=== PATIENT | male | born 1940 | race Two or more races ===

== ENCOUNTER 2017-08-16 12:48 | Inpatient (IN) | payer MEDICARE, BC ==
[~2017-08-16] VITALS: Ht 182.9 cm; Wt 81.6 kg
--- NOTE | 2017-08-16 12:57 | NUR ---
BB CUT OFF SAW OPERATOR METAL OF [facility] FOR PSYCH EVAL; RESTLESS, AGITATED, STRIKING STAFF PER STAFF. A/OX1. NAD VSS RR EVEN AND UNLABORED. PT IS CALM AT THIS TIME, PER STAFF PT GOT ATIVAN CANOPY STRINGER. WILL CONT TO MONITOR
[2017-08-16 13:24] LABS: APPEARANCE,URINE CLEAR (CLEAR); BILIRUBIN,URINE NEGATIVE (NEGATIVE); BLOOD, URINE NEGATIVE Ery/uL (NEGATIVE); COLOR,URINE YELLOW (YELLOW); KETONES,URINE NEGATIVE (NEGATIVE); LEUKOCYTE ESTERASE ,URINE NEGATIVE (NEGATIVE); NITRITE, URINE NEGATIVE (NEGATIVE); PH,URINE 7.5 (5.0-8.0); PROTEIN,URINE NEGATIVE (NEGATIVE); UGLUCOSE NEGATIVE (NEGATIVE); UROBILINOGEN,URINE 0.2 EU/dL (0.2)
[2017-08-16 13:29] LABS: BASOPHILS % (AUTO) 0.4 % (0.0-2.0); EOSINOPHILS % (AUTO) 2.4 % (0.0-6.0); HEMATOCRIT 37 % (39-51); HEMOGLOBIN 12.5 g/dL (13.5-17.5); LYMPHOCYTES # (AUTO) 0.9 /CMM (0.8-4.8); LYMPHOCYTES % (AUTO) 16.4 % (20.0-44.0); MEAN CORPUSCULAR HEMOGLOBIN 29 PG (26.0-33.0); MEAN CORPUSCULAR HGB CONC 34 g/dl (31.0-36.0); MEAN CORPUSCULAR VOLUME 84 fL (80-96); MONOCYTES # (AUTO) 0.3 /CMM (0.1-1.30); MONOCYTES % (AUTO) 5.7 % (2.0-12.0); NEUTROPHILS # (AUTO) 4.2 /CMM (1.8-8.9); NEUTROPHILS % (AUTO) 75.1 % (43.0-81.0); PLATELET COUNT (AUTO) 210 /CMM (150-450); RDW COEFFICIENT OF VARIATION 13.2 (11.5-15.0); RED BLOOD CELL COUNT(AUTO) 4.39 MIL/uL (4.5-6.0); WHITE BLOOD COUNT (AUTO) 5.5 K/uL (4.3-11.0)
[2017-08-16 13:40] LABS: ALANINE AMINOTRANSFERASE 20 U/L (12-78); ALBUMIN 3.3 g/dL (3.4-5.0); ALCOHOL, BLOOD < 3 mg/dL (0-0); ALKALINE PHOSPHATASE 69 U/L (46-116); ASPARTATE AMINOTRANSFERASE 20 U/L (15-37); BILIRUBIN,DIRECT 0.1 mg/dL (0.0-0.2); BILIRUBIN,TOTAL 0.4 mg/dL (0.2-1.0); CALCIUM, SERUM 8.3 mg/dL (8.5-10.1); CARBON DIOXIDE 27 mmol/L (21-32); CHLORIDE 103 mmol/L (98-107); CREATININE 1.1 mg/dL (0.6-1.3); GLUCOSE 142 mg/dL (74-106); POTASSIUM 3.8 mmol/L (3.5-5.1); SODIUM SERUM 136 mmol/L (136-145); TOTAL PROTEIN, SERUM 6.5 g/dL (6.4-8.2); UREA NITROGEN, BLOOD 16 mg/dL (7-18)
[2017-08-16 13:48] LABS: ACETAMINOPHEN 0 ug/ml (10-30); SALICYLATE 2.7 mg/dL (2.8-20.0)
[2017-08-16] MEDS ORDERED: ESCI20TA PO (14:10)
[2017-08-16] MEDS ORDERED: POTA10TA15 PO (14:10)
[2017-08-16] MEDS ORDERED: FLUD0.1T PO (14:10)
[2017-08-16] MEDS ORDERED: BENZ0.5T43 PO (14:10)
[2017-08-16] MEDS ORDERED: CARB-93 PO (14:10)
[2017-08-16] MEDS ORDERED: CALC500T3 PO (14:10)
[2017-08-16] MEDS ORDERED: ATOR20TA PO (14:10)
[2017-08-16] MEDS ORDERED: DULO60CA45 PO (14:10)
[2017-08-16] MEDS ORDERED: AMLO10TA2 PO (14:10)
[2017-08-16] MEDS ORDERED: HYDR-552 PO (14:10)
[2017-08-16] MEDS ORDERED: DONE10TA44 PO (14:10)
[2017-08-16] MEDS ORDERED: BUSP10TA35 PO ×3 (14:10)
[2017-08-16] MEDS ORDERED: QUET25TA PO (14:10)
[2017-08-16] MEDS ORDERED: LISI10TA5 PO (14:10)
[2017-08-16] MEDS ORDERED: ASPI-992 PO (14:10)
[2017-08-16] MEDS ORDERED: LORA1TAB PO (14:10)
[2017-08-16] MEDS ORDERED: DOCU100C36 PO (14:10)
[2017-08-16] MEDS ORDERED: QUET100T PO (14:10)
--- NOTE | 2017-08-16 14:13 | NUR ---
PAGED STEVIE FOR EVAL - ETA 60 MIN
[2017-08-16] MEDS ORDERED: LORAZEPAM INJ 2 MG/ML VIAL ONE (14:21)
[2017-08-16] MEDS ORDERED: LORAZEPAM INJ 2 MG/ML VIAL IV ONE (14:30)
[2017-08-16] MEDS ORDERED: OLANZAPINE 10 MG VIAL IM ONE ×2 (14:44→15:00)
--- NOTE | 2017-08-16 15:09 | NUR ---
STEVIE PET TEAM AT BEDSIDE FOR EVALUATION
[2017-08-16 16:00] VITALS: BP 145/86
--- NOTE | 2017-08-16 16:03 | NUR ---
REPORT GIVEN TO BRENNEN SPENCER FOR CONT OF CARE
[2017-08-16] MEDS ORDERED: MAGNESIUM HYDROXIDE 30 ML UDC PO PRN (17:00)
[2017-08-16] MEDS ORDERED: MAG HYDROX/AL HYDROX/SIMETH 30 ML UDC PO PRN (17:00)
--- NOTE | 2017-08-16 17:55 | NUR ---
RN NOTE: PATIENT ARRIVED ON THE UNIT AT 1630. PATIENT IS CONFUSED AND SLURRED SPEECH. PATIENT ARRIVED VIA GURNEY FROM ER. [facility] AND BROUGHT IN FOR STRIKING AT STAFF, RESTLESS, AND AGITATION. PATIENT SKIN ASSESSMENT IS COMPLETE AND IN CHART. BELONGINGS CHECKED. PATIENT UNABLE TO SIGN PAPERS. ACCORDING TO ER, MRSA DONE. PSYCH AND MANUAL TESTER MADE AWARE. PATIENT IS CONFUSED, BUT TRIED TO ORIENT TO POLICY AND PROCEDURES.
[2017-08-16] MEDS ORDERED: CARBIDOPA/LEVODOPA 25/100 MG 1 UDTAB PO ONE (19:00)
[2017-08-16 20:03] VITALS: BP 137/65
--- NOTE | 2017-08-16 20:30 | NUR ---
GPS-RN PATIENT IS AGITATED AND RESTLESS, YELLING REPETITIVELY, BANGING THE SIDE RAILS, NEEDS FREQUENT REDIRECTION. WILL CONTINUE TO MONITOR Q15MIN ROUNDS FOR SAFETY AND BEHAVIOR. PATIENT REMAINS ON 1:1 FOR SAFETY.
[2017-08-16] MEDS: LORAZEPAM 1 MG TABLET PO PRN (20:35)
--- NOTE | 2017-08-16 20:35 | NUR ---
GPS-RN PATIENT IS ANXIOUS AND RESTLESS. VSS. ADMINISTERED ATIVAN 1MG PO ORDERED. WILL CONTINUE TO MONITOR [id number] FOR SAFETY AND BEHAVIOR.
[2017-08-16] MEDS: DONEPEZIL 5 MG TABLET PO SCH (21:42)
[2017-08-16] MEDS: HYDROCODONE/APAP 5/325MG 1 EACH TABLET PO PRN (22:58)
[2017-08-17] MEDS: ZOLPIDEM TARTRATE 5 MG TABLET PO PRN ×2 (00:44→21:36)
[2017-08-17] MEDS: ACETAMINOPHEN 325 MG TABLET PO PRN ×2 (01:12→19:38)
--- NOTE | 2017-08-17 01:27 | NUR ---
GPS-RN PATIENT NOTED TO BE NON-VERBAL INDICATOR OF PAIN/DISCOMFORT PRESENT, MANIFESTED WITH MOANING AND FACIAL GRIMACING. ADMINISTERED NORCO 5/325MG PO ORDERED. WILL CONTINUE TO MONITOR.
--- NOTE | 2017-08-17 06:04 | NUR ---
GPS-RN SPOKE TO MEAGAN BALDERAS NOTIFIED OF PATIENT'S ADMISSION.
[2017-08-17 08:00] VITALS: BP 145/89
[2017-08-17 08:10] LABS: ALANINE AMINOTRANSFERASE 20 U/L (12-78); ALBUMIN 3.5 g/dL (3.4-5.0); ALKALINE PHOSPHATASE 70 U/L (46-116); ASPARTATE AMINOTRANSFERASE 13 U/L (15-37); BILIRUBIN,TOTAL 0.5 mg/dL (0.2-1.0); CALCIUM, SERUM 8.6 mg/dL (8.5-10.1); CARBON DIOXIDE 29 mmol/L (21-32); CHLORIDE 105 mmol/L (98-107); GLUCOSE 77 mg/dL (74-106); POTASSIUM 3.8 mmol/L (3.5-5.1); SODIUM SERUM 140 mmol/L (136-145); TOTAL PROTEIN, SERUM 6.8 g/dL (6.4-8.2); UREA NITROGEN, BLOOD 16 mg/dL (7-18)
[2017-08-17] MEDS: BENZTROPINE MESYLATE (1 MG) 1 MG TABLET PO SCH ×2 (08:50→16:00)
[2017-08-17] MEDS: CARBIDOPA/LEVODOPA 25/100 MG 1 UDTAB PO SCH ×3 (08:52→16:00)
[2017-08-17] MEDS: LORAZEPAM 1 MG TABLET PO PRN ×3 (08:52→18:03)
[2017-08-17] MEDS: ASPIRIN 325 MG TABLET PO SCH (08:52)
[2017-08-17] MEDS: DULOXETINE HCL 30 MG CAPSULE.DR PO SCH (08:52)
[2017-08-17] MEDS: HYDROCODONE/APAP 5/325MG 1 EACH TABLET PO PRN ×2 (08:52→15:32)
[2017-08-17] MEDS: POTASSIUM CHLORIDE 10 MEQ TABLET.SA PO SCH (08:52)
[2017-08-17] MEDS: DOCUSATE SODIUM 100 MG CAPSULE PO SCH ×2 (08:52→16:00)
[2017-08-17] MEDS: CALCIUM CARBONATE (1250) 500 MG TABLET PO SCH (08:52)
--- NOTE | 2017-08-17 08:52 | NUR ---
GPS/RN PATIENT NOTED WITH NON-VERBAL INDICATOR OF PAIN/DISCOMFORT PRESENT, MANIFESTED BY MOANING, FACIAL GRIMACING AND YELLING. ADMINISTERED NORCO 5/325MG PO ORDERED. WILL CONTINUE TO MONITOR.
[2017-08-17] MEDS: ESCITALOPRAM OXALATE (10 MG) 10 MG TABLET PO SCH (08:53)
[2017-08-17] MEDS: LISINOPRIL (10MG) 10 MG TABLET PO SCH (08:53)
[2017-08-17] MEDS: AMLODIPINE BESYLATE 10 MG TABLET PO SCH (08:53)
[2017-08-17] MEDS ORDERED: AMLODIPINE BESYLATE 10 MG TABLET PO SCH (09:00)
[2017-08-17] MEDS ORDERED: LISINOPRIL (10MG) 10 MG TABLET PO SCH (09:00)
[2017-08-17] MEDS: FLUDROCORTISONE 0.1 MG TABLET PO SCH ×2 (09:00→10:24)
[2017-08-17] MEDS ORDERED: OLANZAPINE 2.5 MG TABLET PO SCH (09:00)
[2017-08-17 09:36] LABS: CHOLESTEROL 136 mg/dL (<200); HDL CHOLESTEROL 61 mg/dL (40-60); LDL 63 mg/dL (0-99); TRIGLYCERIDES 67 mg/dL (30-150)
--- NOTE | 2017-08-17 10:10 | NUR ---
GPS/RN PATIENT IS EXTREMELY ANXIOUS, AGITATED AND RESTLESS. ADMINISTERED ATIVAN 1 MG, WILL CONTINUE TO MONITOR.
--- NOTE | 2017-08-17 15:32 | NUR ---
GPS/RN PATIENT NOTED IN PAIN/DISCOMFORT, MANIFESTED BY MOANING AND FACIAL GRIMACING, UNABLE TO SCALE, ADMINISTERED NORCO 5/325MG PO ORDERED. WILL CONTINUE TO MONITOR.
[2017-08-17 16:59] VITALS: BP 115/63
--- NOTE | 2017-08-17 18:04 | NUR ---
GPS/RN PATIENT IS EXTREMELY ANXIOUS, AGITATED AND RESTLESS, YELLING, BANGING ON TRAY, ADMINISTERED ATIVAN 1 MG, WILL CONTINUE TO MONITOR.
[2017-08-17 20:32] VITALS: BP 146/120
[2017-08-17] MEDS: DONEPEZIL 5 MG TABLET PO SCH (21:00)
[2017-08-17] MEDS: ATORVASTATIN 10 MG TABLET PO SCH (21:06)
--- NOTE | 2017-08-17 21:36 | NUR ---
GPS-RN PATIENT UNABLE TO STAY ASLEEP. VSS. ADMINISTERED AMBIEN 5MG PO ORDERED. WILL CONTINUE TO MONITOR HOURS OF SLEEP.
[2017-08-18 08:00] VITALS: BP 147/73
--- NOTE | 2017-08-18 08:00 | NUR ---
GPS-RN AM NOTES PATIENT COMFORTABLY SLEEPING BUT AROUSABLE.REFUSED BREAKFAST.WILL CONTINUE TO MONITOR Q15MIN ROUNDS FOR SAFETY AND BEHAVIOR. PATIENT REMAINS ON 1:1 SITTER FOR SAFETY.
[2017-08-18] MEDS: ASPIRIN 325 MG TABLET PO SCH (08:56)
[2017-08-18] MEDS: BENZTROPINE MESYLATE (1 MG) 1 MG TABLET PO SCH ×2 (08:56→16:31)
[2017-08-18] MEDS: ESCITALOPRAM OXALATE (10 MG) 10 MG TABLET PO SCH (08:56)
[2017-08-18] MEDS: CALCIUM CARBONATE (1250) 500 MG TABLET PO SCH (08:57)
[2017-08-18] MEDS: CARBIDOPA/LEVODOPA 25/100 MG 1 UDTAB PO SCH ×3 (08:57→16:31)
[2017-08-18] MEDS: FLUDROCORTISONE 0.1 MG TABLET PO SCH (08:57)
[2017-08-18] MEDS: OLANZAPINE 2.5 MG TABLET PO SCH (08:57)
[2017-08-18] MEDS: AMLODIPINE BESYLATE 10 MG TABLET PO SCH (08:57)
[2017-08-18] MEDS: POTASSIUM CHLORIDE 10 MEQ TABLET.SA PO SCH (08:57)
[2017-08-18] MEDS: DOCUSATE SODIUM 100 MG CAPSULE PO SCH ×2 (08:57→16:31)
[2017-08-18] MEDS: LISINOPRIL (10MG) 10 MG TABLET PO SCH (08:58)
[2017-08-18] MEDS: DULOXETINE HCL 30 MG CAPSULE.DR PO SCH (08:58)
--- NOTE | 2017-08-18 12:11 | NUR ---
WOUND CARE CONSULT: PT SEEN FOR DRY ABRASIONS TO ARMS AND RT LOWER LEG, PRESENT ON ADMISSION. NO DRAINAGE NOTED. WILL SEE PRN.
[2017-08-18] MEDS: clonazePAM 0.5 MG TABLET PO SCH (12:35)
--- NOTE | 2017-08-18 13:06 | NUR ---
INITIAL DISCHARGE PLAN: Per pts , pt will return to [facility] [address] [place] [id number] . MANUEL contacted Deb [facility] orthodontist small business owner [phone] who confirmed pt was able to return to facility once stabilized. Deb also stated she needed to complete and assessment before pt could return to facility. MANUEL will help form a safe and proper discharge in collaboration with .
[2017-08-18 16:00] VITALS: BP 115/66
--- NOTE | 2017-08-18 17:34 | NUR ---
PT RESTING IN BED BEING FED BY HIS SITTER OF HIS DINNER.PT HAS NO S/S OF AGITATION AND RESTLESSNESS.PT COMPLIANT WITH MEDS.NO S/S OF PAIN OR DISTRESS.WILL CONTINUE TO MONITOR.
[2017-08-18 20:00] VITALS: BP 113/86
[2017-08-18] MEDS: DONEPEZIL 5 MG TABLET PO SCH (21:51)
[2017-08-18] MEDS: ATORVASTATIN 10 MG TABLET PO SCH (21:51)
[2017-08-19] MEDS: ZOLPIDEM TARTRATE 5 MG TABLET PO PRN (01:08)
[2017-08-19 08:24] VITALS: BP 133/73
[2017-08-19] MEDS: POTASSIUM CHLORIDE 10 MEQ TABLET.SA PO SCH (08:48)
[2017-08-19] MEDS: ASPIRIN 325 MG TABLET PO SCH (08:48)
[2017-08-19] MEDS: DULOXETINE HCL 30 MG CAPSULE.DR PO SCH (08:48)
[2017-08-19] MEDS: BENZTROPINE MESYLATE (1 MG) 1 MG TABLET PO SCH ×2 (08:48→16:40)
[2017-08-19] MEDS: CALCIUM CARBONATE (1250) 500 MG TABLET PO SCH (08:49)
[2017-08-19] MEDS: LISINOPRIL (10MG) 10 MG TABLET PO SCH (08:49)
[2017-08-19] MEDS: ESCITALOPRAM OXALATE (10 MG) 10 MG TABLET PO SCH (08:49)
[2017-08-19] MEDS: AMLODIPINE BESYLATE 10 MG TABLET PO SCH (08:49)
[2017-08-19] MEDS: DOCUSATE SODIUM 100 MG CAPSULE PO SCH ×2 (08:49→16:57)
[2017-08-19] MEDS: FLUDROCORTISONE 0.1 MG TABLET PO SCH (08:49)
[2017-08-19] MEDS: OLANZAPINE 2.5 MG TABLET PO SCH (08:49)
[2017-08-19] MEDS: CARBIDOPA/LEVODOPA 25/100 MG 1 UDTAB PO SCH ×3 (08:49→16:40)
[2017-08-19] MEDS: clonazePAM 0.5 MG TABLET PO SCH (12:11)
[2017-08-19 16:00] VITALS: BP 154/82
[2017-08-19 20:00] VITALS: BP 139/75
[2017-08-19] MEDS: DONEPEZIL 5 MG TABLET PO SCH (22:01)
[2017-08-19] MEDS: ZOLPIDEM TARTRATE 10 MG TABLET PO PRN (22:01)
[2017-08-19] MEDS: ATORVASTATIN 10 MG TABLET PO SCH (22:01)
--- NOTE | 2017-08-19 22:02 | NUR ---
AMBIEN 10 MG TAB 1 PO GIVEN FOR SLEEP.
[2017-08-20 08:00] VITALS: BP 144/73
[2017-08-20] MEDS: ESCITALOPRAM OXALATE (10 MG) 10 MG TABLET PO SCH (08:51)
[2017-08-20] MEDS: DOCUSATE SODIUM 100 MG CAPSULE PO SCH ×3 (08:51→17:01)
[2017-08-20] MEDS: FLUDROCORTISONE 0.1 MG TABLET PO SCH (08:51)
[2017-08-20] MEDS: AMLODIPINE BESYLATE 10 MG TABLET PO SCH (08:52)
[2017-08-20] MEDS: CARBIDOPA/LEVODOPA 25/100 MG 1 UDTAB PO SCH ×3 (08:52→17:01)
[2017-08-20] MEDS: POTASSIUM CHLORIDE 10 MEQ TABLET.SA PO SCH (08:52)
[2017-08-20] MEDS: LISINOPRIL (10MG) 10 MG TABLET PO SCH (08:52)
[2017-08-20] MEDS: CALCIUM CARBONATE (1250) 500 MG TABLET PO SCH (08:52)
[2017-08-20] MEDS: BENZTROPINE MESYLATE (1 MG) 1 MG TABLET PO SCH ×2 (08:52→17:01)
[2017-08-20] MEDS: OLANZAPINE 2.5 MG TABLET PO SCH (08:52)
[2017-08-20] MEDS: ASPIRIN 325 MG TABLET PO SCH (08:55)
[2017-08-20] MEDS: clonazePAM 0.5 MG TABLET PO SCH (13:30)
[2017-08-20 16:00] VITALS: BP 115/63
[2017-08-20] MEDS: LORAZEPAM 1 MG TABLET PO PRN (17:56)
--- NOTE | 2017-08-20 18:38 | NUR ---
AM RN NOTE Pt resting in his bed, no episode of hematuria noted during this shift. 1:1 sitter at bedside.
--- NOTE | 2017-08-20 19:05 | NUR ---
AM RN NOTE Noted cancellation for UA order, called lab spoke with Koby and per him the order was cancelled because UA sample was received but he will call back after he confirms with tech. Endorsed to Next shift RN.
[2017-08-20 20:00] VITALS: BP 99/58
--- NOTE | 2017-08-20 20:03 | NUR ---
ORDER FOR U/A WITH C/S CANCELLED, LAB WAS NOTIFIED.
--- NOTE | 2017-08-20 20:04 | NUR ---
REPOERT GIVEN TO NURSE ESTEVAN FOR CONTINUITY OF CARE.
[2017-08-20] MEDS: DONEPEZIL 5 MG TABLET PO SCH (21:12)
[2017-08-20] MEDS: ATORVASTATIN 10 MG TABLET PO SCH (21:12)
[2017-08-20] MEDS: ZOLPIDEM TARTRATE 10 MG TABLET PO PRN (21:12)
--- NOTE | 2017-08-20 21:15 | NUR ---
AMBIEN 10 MG TAB PO GIVEN FOR SLEEP. MEDS WAS CRUSHED TO PREVENT POSSIBLE ASPIRATION
[2017-08-21 08:00] VITALS: BP 100/66
[2017-08-21] MEDS: CARBIDOPA/LEVODOPA 25/100 MG 1 UDTAB PO SCH ×3 (09:06→17:33)
[2017-08-21] MEDS: CALCIUM CARBONATE (1250) 500 MG TABLET PO SCH (09:06)
[2017-08-21] MEDS: BENZTROPINE MESYLATE (1 MG) 1 MG TABLET PO SCH ×2 (09:08→17:34)
[2017-08-21] MEDS: AMLODIPINE BESYLATE 10 MG TABLET PO SCH (09:09)
[2017-08-21] MEDS: LORAZEPAM 1 MG TABLET PO PRN ×2 (09:09→21:41)
[2017-08-21] MEDS: ASPIRIN 325 MG TABLET PO SCH ×2 (09:09→09:31)
[2017-08-21] MEDS: ESCITALOPRAM OXALATE (10 MG) 10 MG TABLET PO SCH (09:19)
[2017-08-21] MEDS: FLUDROCORTISONE 0.1 MG TABLET PO SCH (09:20)
[2017-08-21] MEDS: POTASSIUM CHLORIDE 10 MEQ TABLET.SA PO SCH (09:20)
[2017-08-21] MEDS: DOCUSATE SODIUM 100 MG CAPSULE PO SCH ×2 (09:21→17:33)
[2017-08-21] MEDS: LISINOPRIL (10MG) 10 MG TABLET PO SCH (09:28)
[2017-08-21] MEDS: OLANZAPINE 2.5 MG TABLET PO SCH (09:30)
--- NOTE | 2017-08-21 14:46 | NUR ---
GPS/RN UNABLE TO MEDICATE PATIENT WAS SLEEPING ATTEMPT TO WAKE HIM BUT UNSUCCESSFUL
[2017-08-21] MEDS: clonazePAM 0.5 MG TABLET PO SCH (15:12)
[2017-08-21 16:00] VITALS: BP 103/58
[2017-08-21 20:03] VITALS: BP 95/55
[2017-08-21] MEDS: DONEPEZIL 5 MG TABLET PO SCH (21:40)
[2017-08-21] MEDS: ATORVASTATIN 10 MG TABLET PO SCH (21:40)
[2017-08-21] MEDS: TEMAZEPAM 15 MG CAPSULE PO SCH (21:43)
--- NOTE | 2017-08-22 03:18 | NUR ---
TEMAZEPAM 7.5 MG CAP 1 PO GIVEN ROUTINE MEDICATION FOR TONIGHT
[2017-08-22 08:00] VITALS: BP 124/82
[2017-08-22] MEDS: AMLODIPINE BESYLATE 10 MG TABLET PO SCH (08:38)
[2017-08-22] MEDS: FLUDROCORTISONE 0.1 MG TABLET PO SCH (08:38)
[2017-08-22] MEDS: DOCUSATE SODIUM 100 MG CAPSULE PO SCH ×2 (08:38→16:35)
[2017-08-22] MEDS: ESCITALOPRAM OXALATE (10 MG) 10 MG TABLET PO SCH (08:38)
[2017-08-22] MEDS: LISINOPRIL (10MG) 10 MG TABLET PO SCH (08:38)
[2017-08-22] MEDS: OLANZAPINE 2.5 MG TABLET PO SCH (08:39)
[2017-08-22] MEDS: BENZTROPINE MESYLATE (1 MG) 1 MG TABLET PO SCH ×2 (08:39→16:35)
[2017-08-22] MEDS: CARBIDOPA/LEVODOPA 25/100 MG 1 UDTAB PO SCH ×3 (08:39→16:35)
[2017-08-22] MEDS: POTASSIUM CHLORIDE 10 MEQ TABLET.SA PO SCH (08:39)
[2017-08-22] MEDS: LORAZEPAM 1 MG TABLET PO PRN (08:39)
[2017-08-22] MEDS: CALCIUM CARBONATE (1250) 500 MG TABLET PO SCH (08:39)
[2017-08-22] MEDS: clonazePAM 0.5 MG TABLET PO SCH (15:35)
[2017-08-22 16:00] VITALS: BP 115/50
[2017-08-22 20:33] VITALS: BP 118/55
[2017-08-22] MEDS: ATORVASTATIN 10 MG TABLET PO SCH (21:30)
[2017-08-22] MEDS: DONEPEZIL 5 MG TABLET PO SCH (21:30)
[2017-08-22] MEDS: TEMAZEPAM 15 MG CAPSULE PO SCH (21:31)
[2017-08-23 08:00] VITALS: BP 142/64
[2017-08-23] MEDS: CARBIDOPA/LEVODOPA 25/100 MG 1 UDTAB PO SCH ×3 (10:25→17:06)
[2017-08-23] MEDS: OLANZAPINE 2.5 MG TABLET PO SCH (10:26)
[2017-08-23] MEDS: BENZTROPINE MESYLATE (1 MG) 1 MG TABLET PO SCH ×2 (10:26→17:06)
[2017-08-23] MEDS: POTASSIUM CHLORIDE 10 MEQ TABLET.SA PO SCH (10:26)
[2017-08-23] MEDS: LISINOPRIL (10MG) 10 MG TABLET PO SCH (10:26)
[2017-08-23] MEDS: ESCITALOPRAM OXALATE (10 MG) 10 MG TABLET PO SCH (10:26)
[2017-08-23] MEDS: CALCIUM CARBONATE (1250) 500 MG TABLET PO SCH (10:26)
[2017-08-23] MEDS: ASPIRIN 325 MG TABLET PO SCH (10:26)
[2017-08-23] MEDS: FLUDROCORTISONE 0.1 MG TABLET PO SCH (10:26)
[2017-08-23] MEDS: DOCUSATE SODIUM 100 MG CAPSULE PO SCH ×2 (10:26→17:07)
[2017-08-23] MEDS: AMLODIPINE BESYLATE 10 MG TABLET PO SCH (10:27)
[2017-08-23] MEDS: clonazePAM 0.5 MG TABLET PO SCH (15:13)
[2017-08-23 16:00] VITALS: BP 129/66
--- NOTE | 2017-08-23 19:35 | NUR ---
GPS RN NOTES RECEIVED ON BED A/O X1,CONFUSED,TRYING TO GET OUT OF BED.SITTER AT BEDSIDE FOR SAFETY.UNABLE TO AMBULATE.TALKING TO SELF T AT TIMES.WILL CONTINUE TO MONITOR BEHAVIOR.
[2017-08-23 20:00] VITALS: BP 109/52
[2017-08-23 20:48] VITALS: BP 109/52
--- NOTE | 2017-08-23 21:30 | NUR ---
GPS RN NOTES NO SITTER AT THIS TIME.PATIENT WAS PLACED ON BRET CHAIR,STORAGE BATTERY INSPECTOR AND TESTER MONITOR PATIENT IN THE DINING ROOM
[2017-08-23] MEDS: TEMAZEPAM 15 MG CAPSULE PO SCH (21:50)
[2017-08-23] MEDS: ATORVASTATIN 10 MG TABLET PO SCH (21:51)
[2017-08-23] MEDS: DONEPEZIL 5 MG TABLET PO SCH (21:51)
--- NOTE | 2017-08-23 22:00 | NUR ---
GPS RN NOTES DUE PO MEDS GIVEN,TAKEN WELL WITH APPLE SAUCE
[2017-08-24 08:00] VITALS: BP 126/66
[2017-08-24] MEDS: CARBIDOPA/LEVODOPA 25/100 MG 1 UDTAB PO SCH ×3 (08:20→16:51)
[2017-08-24] MEDS: POTASSIUM CHLORIDE 10 MEQ TABLET.SA PO SCH (08:20)
[2017-08-24] MEDS: ASPIRIN 325 MG TABLET PO SCH (08:20)
[2017-08-24] MEDS: FLUDROCORTISONE 0.1 MG TABLET PO SCH (08:20)
[2017-08-24] MEDS: CALCIUM CARBONATE (1250) 500 MG TABLET PO SCH (08:20)
[2017-08-24] MEDS: OLANZAPINE 2.5 MG TABLET PO SCH (08:20)
[2017-08-24] MEDS: BENZTROPINE MESYLATE (1 MG) 1 MG TABLET PO SCH ×2 (08:21→16:51)
[2017-08-24] MEDS: LISINOPRIL (10MG) 10 MG TABLET PO SCH (08:21)
[2017-08-24] MEDS: ESCITALOPRAM OXALATE (10 MG) 10 MG TABLET PO SCH (08:21)
[2017-08-24] MEDS: AMLODIPINE BESYLATE 10 MG TABLET PO SCH (08:21)
[2017-08-24] MEDS: DOCUSATE SODIUM 100 MG CAPSULE PO SCH ×2 (08:21→16:51)
[2017-08-24] MEDS: clonazePAM 0.5 MG TABLET PO SCH (14:24)
[2017-08-24 16:00] VITALS: BP 100/58
[2017-08-24 16:22] VITALS: BP 100/58
[2017-08-24] MEDS: LORAZEPAM 1 MG TABLET PO PRN ×2 (17:32→23:02)
[2017-08-24 20:13] VITALS: BP 91/52
--- NOTE | 2017-08-24 20:25 | NUR ---
GPS RN NOTE: RECEIVED PATIENT AT BEGINNING OF SHIFT IN BED ASLEEP WITH FAMILY AT BEDSIDE. PATIENT CURRENTLY AWAKE AND ORIENTED X 1, MUMBLING TO SELF AT TIMES BUT DOES NOT APPEAR TO BE IN DISTRESS. BEDRAILS UP X 4, BED IN LOW POSITION. WILL CONTINUE TO MONITOR Q 15 FOR SAFETY AND COMFORT.
[2017-08-24 21:33] LABS: BASOPHILS % (AUTO) 0.2 % (0.0-2.0); EOSINOPHILS % (AUTO) 0.4 % (0.0-6.0); HEMATOCRIT 35 % (39-51); LYMPHOCYTES # (AUTO) 0.6 /CMM (0.8-4.8); LYMPHOCYTES % (AUTO) 9.9 % (20.0-44.0); MEAN CORPUSCULAR HEMOGLOBIN 29 PG (26.0-33.0); MEAN CORPUSCULAR HGB CONC 34 g/dl (31.0-36.0); MEAN CORPUSCULAR VOLUME 87 fL (80-96); MONOCYTES # (AUTO) 0.5 /CMM (0.1-1.30); MONOCYTES % (AUTO) 8.5 % (2.0-12.0); NEUTROPHILS # (AUTO) 4.9 /CMM (1.8-8.9); PLATELET COUNT (AUTO) 175 /CMM (150-450); RDW COEFFICIENT OF VARIATION 14.2 (11.5-15.0); RED BLOOD CELL COUNT(AUTO) 4.09 MIL/uL (4.5-6.0); WHITE BLOOD COUNT (AUTO) 6.1 K/uL (4.3-11.0)
[2017-08-24] MEDS: ATORVASTATIN 10 MG TABLET PO SCH (21:35)
[2017-08-24] MEDS: TEMAZEPAM 15 MG CAPSULE PO SCH (21:35)
[2017-08-24] MEDS: DONEPEZIL 5 MG TABLET PO SCH (21:35)
--- NOTE | 2017-08-24 21:38 | NUR ---
PATIENT AWAKE LYING IN BED, NO APPARENT DISTRESS, MED COMPLIANT, FED UNSWEETENED APPLESAUCE SNACK, TOLERATED WELL.
[2017-08-24 21:48] LABS: ALANINE AMINOTRANSFERASE 8 U/L (12-78); ALKALINE PHOSPHATASE 68 U/L (46-116); ASPARTATE AMINOTRANSFERASE 20 U/L (15-37); BILIRUBIN,DIRECT 0.1 mg/dL (0.0-0.2); BILIRUBIN,TOTAL 0.4 mg/dL (0.2-1.0); CALCIUM, SERUM 8.7 mg/dL (8.5-10.1); CARBON DIOXIDE 28 mmol/L (21-32); CHLORIDE 105 mmol/L (98-107); GLUCOSE 107 mg/dL (74-106); SODIUM SERUM 141 mmol/L (136-145); TOTAL PROTEIN, SERUM 6.5 g/dL (6.4-8.2); UREA NITROGEN, BLOOD 46 mg/dL (7-18)
[2017-08-24 21:57] LABS: THYROID STIMULATING HORMONE 1.736 uIU/mL (0.358-3.74)
--- NOTE | 2017-08-24 23:10 | NUR ---
GPS RN NOTE: RECEIVED LABS, BUN 46, CREATININE 2.0, ALBUMIN, 3.0, NOTIFIED EPIC GROUP TO PAGE DR. SIERRA WITH RESULTS. PENDING CALL BACK. PATIENT NOW AWAKE AND AGITATED WITH LITTLE EFFECT OF RESTORIL. ATIVAN PRN GIVEN IN ADDITION TO ASSISTED SNACK OF UNSWEETENED APPLE SAUCE, TOLERATED WELL.
--- NOTE | 2017-08-24 23:58 | NUR ---
ATIVAN EFFECTIVE. PATIENT SLEEPING IN NO APPARENT DISTRESS.
--- NOTE | 2017-08-25 06:31 | NUR ---
REPORTED LABS DRAWN ON 08/24/17, INCLUDING BUN [address] SIERRA WHO REQUESTED IT BE ENDORSED TO DAY SHIFT TO NOTIFY NEXT ATTENDING PHYSICIAN REPAIRER [employer]. WILL ENDORSE IN AM REPORT, CROSS TIE TURNER , LOUISA BENZ.
[2017-08-25 08:00] VITALS: BP 120/70
[2017-08-25] MEDS: ASPIRIN 325 MG TABLET PO SCH (08:17)
[2017-08-25] MEDS: ESCITALOPRAM OXALATE (10 MG) 10 MG TABLET PO SCH (08:18)
[2017-08-25] MEDS: AMLODIPINE BESYLATE 10 MG TABLET PO SCH (08:18)
[2017-08-25] MEDS: FLUDROCORTISONE 0.1 MG TABLET PO SCH (08:18)
[2017-08-25] MEDS: OLANZAPINE 2.5 MG TABLET PO SCH (08:18)
[2017-08-25] MEDS: BENZTROPINE MESYLATE (1 MG) 1 MG TABLET PO SCH ×2 (08:18→16:15)
[2017-08-25] MEDS: CALCIUM CARBONATE (1250) 500 MG TABLET PO SCH (08:18)
[2017-08-25] MEDS: DOCUSATE SODIUM 100 MG CAPSULE PO SCH ×2 (08:19→16:15)
[2017-08-25] MEDS: POTASSIUM CHLORIDE 10 MEQ TABLET.SA PO SCH (08:19)
[2017-08-25] MEDS: LISINOPRIL (10MG) 10 MG TABLET PO SCH (08:19)
[2017-08-25] MEDS: CARBIDOPA/LEVODOPA 25/100 MG 1 UDTAB PO SCH ×3 (08:19→16:16)
[2017-08-25] MEDS ORDERED: IV NS 0.9% 500 ML IV ONE (15:00)
[2017-08-25] MEDS: clonazePAM 0.5 MG TABLET PO SCH (15:32)
[2017-08-25 16:00] VITALS: BP 143/69
--- NOTE | 2017-08-25 16:00 | NUR ---
GPS/RN IV NS 500ML RUNNING WIDE OPEN. ORDER PER TOOL KEEPER MONTALVO. IV SITE ON LEFT HAND INTACT, NO SIGNS OF INFILTRATION. SITTER AT SIDE FOR SAFETY. Addendum: 08/25/17 at 1740 by IZZY RENO RN O.9 NS
[2017-08-25 20:00] VITALS: BP_SYST 104; BP_SYST 139; BP_DIAS 55; BP_DIAS 75
[2017-08-25] MEDS: DONEPEZIL 5 MG TABLET PO SCH (21:40)
[2017-08-25] MEDS: ATORVASTATIN 10 MG TABLET PO SCH (21:40)
[2017-08-25] MEDS: TEMAZEPAM 15 MG CAPSULE PO SCH (21:42)
[2017-08-25] MEDS ORDERED: OLANZAPINE 2.5 MG TABLET PO SCH (22:00)
[2017-08-26 07:47] LABS: CALCIUM, SERUM 7.9 mg/dL (8.5-10.1); CARBON DIOXIDE 28 mmol/L (21-32); CHLORIDE 107 mmol/L (98-107); CREATININE 0.9 mg/dL (0.6-1.3); GLUCOSE 98 mg/dL (74-106); POTASSIUM 3.4 mmol/L (3.5-5.1); SODIUM SERUM 143 mmol/L (136-145); UREA NITROGEN, BLOOD 31 mg/dL (7-18)
[2017-08-26 08:00] VITALS: BP 125/53
[2017-08-26] MEDS: ASPIRIN 325 MG TABLET PO SCH (09:18)
[2017-08-26] MEDS: CALCIUM CARBONATE (1250) 500 MG TABLET PO SCH (09:18)
[2017-08-26] MEDS: DOCUSATE SODIUM 100 MG CAPSULE PO SCH ×2 (09:18→17:39)
[2017-08-26] MEDS: POTASSIUM CHLORIDE 10 MEQ TABLET.SA PO SCH (09:19)
[2017-08-26] MEDS: CARBIDOPA/LEVODOPA 25/100 MG 1 UDTAB PO SCH ×3 (09:19→17:39)
[2017-08-26] MEDS: BENZTROPINE MESYLATE (1 MG) 1 MG TABLET PO SCH ×2 (09:19→17:39)
[2017-08-26] MEDS: FLUDROCORTISONE 0.1 MG TABLET PO SCH (09:19)
[2017-08-26] MEDS: LISINOPRIL (10MG) 10 MG TABLET PO SCH (09:20)
[2017-08-26] MEDS: AMLODIPINE BESYLATE 10 MG TABLET PO SCH (09:20)
[2017-08-26] MEDS: clonazePAM 0.5 MG TABLET PO SCH ×2 (09:23→15:51)
[2017-08-26] MEDS ORDERED: IV NS 0.9% 500 ML IV ONE (12:00)
[2017-08-26] MEDS ORDERED: POTASSIUM CHLORIDE 20 MEQ TAB.PRT.SR PO SCH (12:00)
[2017-08-26] MEDS: PAROXETINE HCL 10 MG TABLET PO SCH (12:58)
[2017-08-26 16:05] VITALS: BP 133/67
[2017-08-26 20:00] VITALS: BP 127/86
[2017-08-26] MEDS: ATORVASTATIN 10 MG TABLET PO SCH (22:39)
[2017-08-26] MEDS: TEMAZEPAM 15 MG CAPSULE PO SCH (22:39)
[2017-08-26] MEDS: DONEPEZIL 5 MG TABLET PO SCH (22:39)
[2017-08-26] MEDS: LORAZEPAM 1 MG TABLET PO PRN (23:15)
[2017-08-27 08:00] VITALS: BP 127/65
[2017-08-27 08:01] LABS: CALCIUM, SERUM 8.7 mg/dL (8.5-10.1); CARBON DIOXIDE 27 mmol/L (21-32); CHLORIDE 106 mmol/L (98-107); CREATININE 0.8 mg/dL (0.6-1.3); GLUCOSE 96 mg/dL (74-106); POTASSIUM 3.5 mmol/L (3.5-5.1); SODIUM SERUM 142 mmol/L (136-145); UREA NITROGEN, BLOOD 24 mg/dL (7-18)
[2017-08-27] MEDS: BENZTROPINE MESYLATE (1 MG) 1 MG TABLET PO SCH ×2 (08:53→16:49)
[2017-08-27] MEDS: PAROXETINE HCL 10 MG TABLET PO SCH (08:53)
[2017-08-27] MEDS: DOCUSATE SODIUM 100 MG CAPSULE PO SCH ×2 (08:54→16:49)
[2017-08-27] MEDS: clonazePAM 0.5 MG TABLET PO SCH ×2 (08:54→15:00)
[2017-08-27] MEDS: POTASSIUM CHLORIDE 10 MEQ TABLET.SA PO SCH (08:54)
[2017-08-27] MEDS: ASPIRIN 325 MG TABLET PO SCH (08:54)
[2017-08-27] MEDS: CALCIUM CARBONATE (1250) 500 MG TABLET PO SCH (08:54)
[2017-08-27] MEDS: CARBIDOPA/LEVODOPA 25/100 MG 1 UDTAB PO SCH ×3 (08:54→16:49)
[2017-08-27] MEDS: AMLODIPINE BESYLATE 10 MG TABLET PO SCH (08:54)
[2017-08-27] MEDS: LISINOPRIL (10MG) 10 MG TABLET PO SCH (08:55)
[2017-08-27] MEDS: FLUDROCORTISONE 0.1 MG TABLET PO SCH (09:30)
--- NOTE | 2017-08-27 15:34 | NUR ---
GPS/JOHANNA LIU PO HELD FOR [address] FULLER ORDER DUE TO EXCESSIVE SLEEPINESS.
[2017-08-27] MEDS ORDERED: IV NS 0.9% 500 ML IV ONE (16:30)
[2017-08-27 16:33] VITALS: BP 118/63
[2017-08-27 20:00] VITALS: BP 130/78
[2017-08-27] MEDS: DONEPEZIL 5 MG TABLET PO SCH (22:39)
[2017-08-27] MEDS: ATORVASTATIN 10 MG TABLET PO SCH (22:39)
[2017-08-27] MEDS: TEMAZEPAM 15 MG CAPSULE PO SCH (22:39)
[2017-08-28 08:00] VITALS: BP 130/61
[2017-08-28] MEDS: PAROXETINE HCL 10 MG TABLET PO SCH (08:01)
[2017-08-28] MEDS: CALCIUM CARBONATE (1250) 500 MG TABLET PO SCH (08:01)
[2017-08-28] MEDS: POTASSIUM CHLORIDE 10 MEQ TABLET.SA PO SCH (08:01)
[2017-08-28] MEDS: CARBIDOPA/LEVODOPA 25/100 MG 1 UDTAB PO SCH ×3 (08:01→17:55)
[2017-08-28] MEDS: ASPIRIN 325 MG TABLET PO SCH (08:01)
[2017-08-28] MEDS: FLUDROCORTISONE 0.1 MG TABLET PO SCH (08:01)
[2017-08-28] MEDS: LORAZEPAM 1 MG TABLET PO PRN ×2 (08:02→21:15)
[2017-08-28] MEDS: AMLODIPINE BESYLATE 10 MG TABLET PO SCH (08:02)
[2017-08-28] MEDS: DOCUSATE SODIUM 100 MG CAPSULE PO SCH ×2 (08:02→17:55)
[2017-08-28] MEDS: LISINOPRIL (10MG) 10 MG TABLET PO SCH (08:02)
[2017-08-28] MEDS: BENZTROPINE MESYLATE (1 MG) 1 MG TABLET PO SCH ×2 (08:03→17:55)
[2017-08-28 09:13] LABS: CALCIUM, SERUM 8.5 mg/dL (8.5-10.1); CARBON DIOXIDE 26 mmol/L (21-32); CHLORIDE 105 mmol/L (98-107); CREATININE 0.8 mg/dL (0.6-1.3); GLUCOSE 135 mg/dL (74-106); POTASSIUM 3.7 mmol/L (3.5-5.1); SODIUM SERUM 140 mmol/L (136-145); UREA NITROGEN, BLOOD 24 mg/dL (7-18)
[2017-08-28] MEDS: clonazePAM 0.5 MG TABLET PO SCH (15:48)
[2017-08-28 16:00] VITALS: BP 117/65
[2017-08-28 19:49] VITALS: BP 125/63
[2017-08-28 20:02] VITALS: BP 125/63
[2017-08-28] MEDS: DONEPEZIL 5 MG TABLET PO SCH (21:14)
[2017-08-28] MEDS: ATORVASTATIN 10 MG TABLET PO SCH (21:14)
[2017-08-28] MEDS: TEMAZEPAM 15 MG CAPSULE PO SCH (21:15)
[2017-08-29 08:19] VITALS: BP 115/60
[2017-08-29] MEDS: DOCUSATE SODIUM 100 MG CAPSULE PO SCH (08:55)
[2017-08-29] MEDS: ASPIRIN 325 MG TABLET PO SCH (08:55)
[2017-08-29] MEDS: CALCIUM CARBONATE (1250) 500 MG TABLET PO SCH (08:55)
[2017-08-29] MEDS: BENZTROPINE MESYLATE (1 MG) 1 MG TABLET PO SCH (08:55)
[2017-08-29] MEDS: POTASSIUM CHLORIDE 10 MEQ TABLET.SA PO SCH (08:55)
[2017-08-29] MEDS: FLUDROCORTISONE 0.1 MG TABLET PO SCH (08:55)
[2017-08-29] MEDS: LISINOPRIL (10MG) 10 MG TABLET PO SCH (08:56)
[2017-08-29] MEDS: PAROXETINE HCL 10 MG TABLET PO SCH (08:56)
[2017-08-29 08:57] VITALS: BP 115/60
[2017-08-29] MEDS: CARBIDOPA/LEVODOPA 25/100 MG 1 UDTAB PO SCH ×2 (08:57→13:06)
[2017-08-29] MEDS: AMLODIPINE BESYLATE 10 MG TABLET PO SCH (08:57)
--- NOTE | 2017-08-29 14:10 | NUR ---
AM RN NOTE Pt resting in his bed, calm. 1:1 sitter @ bedside. Called [facility] spoke with Deb (Retail Shift Manager) repost given on patient. Discharge Rx faxed to [facility] @[phone] as per Dayan (master planner). Skin pics taken and placed in chart. Will continue to monitor.
[2017-08-29] MEDS: clonazePAM 0.5 MG TABLET PO SCH (14:37)
--- NOTE | 2017-08-29 14:52 | NUR ---
AM RN NOTE Spoke with Wes (manufacturing quality technician) at [facility] and confirmed fax received regarding Rx.
--- NOTE | 2017-08-29 15:15 | NUR ---
DISCHARGE NOTE: Pt will be discharged at 3:30 pm via [facility] to [facility]. [address] [place] [id number] . Pts Halie [phone] has been notified and agress with discharge plan. Pts mood is confused with congruent affect. Pt will be under the care of Psychiatrist: Dr. Rose [address] [facility] [address], [place], [place] [id number] [address] [facility] [address], [place], [place] [id number] [phone] and Tube Man: Dr. lForian Gibson [address] [facility] [address], [place] [address] [phone]. The multidisciplinary exitcare form was done, printed, signed, and given to the patient.
--- NOTE | 2017-08-29 15:39 | NUR ---
AM RN NOTE Pt awake, calm, no s/sx of SI/HI/AVH. Report/ Paperwork given to EMT's. Pt discharged/ left unit at this time as accompanied by 2 EMT'S.
== END 2017-08-29 15:43 | disposition home or self-care (01) | DRG 885 ==
LOC: ER 12:50 → GPS 16:31
PROVIDERS: ADMIT Nurse Practitioner Acute Care; ATTEND Specialist
DX: F29 Unspecified psychosis not due to a substance or known physiological condition (principal); F02.81 Dementia in other diseases classified elsewhere, unspecified severity, with behavioral disturbance; N17.0 Acute kidney failure with tubular necrosis; F23 Brief psychotic disorder; G20 Parkinson's disease; K59.00 Constipation, unspecified; Z85.51 Personal history of malignant neoplasm of bladder; Z86.73 Personal history of transient ischemic attack (TIA), and cerebral infarction without residual deficits; F32.9 Major depressive disorder, single episode, unspecified; E78.5 Hyperlipidemia, unspecified; F41.9 Anxiety disorder, unspecified; I10 Essential (primary) hypertension; Z73.6 Limitation of activities due to disability; G31.9 Degenerative disease of nervous system, unspecified
CPT/HCPCS: 36415; 70450-TC; 76770-TC; 80048-TC; 80053-TC; 80061-TC; 80076-TC; 80305; 81000-TC; 84443-TC; 85025-TC; 87081-TC; A4606; A6402; G0480; J2060; J3490; J7040; Z7610